=== PATIENT | male | born 1950 | race Caucasian/White ===

== ENCOUNTER 2019-05-07 10:09 | Emergency (ER) | payer OTHER, MEDICARE ==
[2019-05-07 10:43] LABS: ABSOLUTE LYMPHOCYTES (AUTO) 0.6 10^3/uL (0.5-4.7); ABSOLUTE MONOCYTES (AUTO) 0.4 10^3/uL (0.1-1.4); ABSOLUTE NEUT (AUTO) 10.1 10^3/uL (1.7-8.2); BASOPHILS % (AUTO) 0.3 % (0-2); HEMATOCRIT 47.2 % (37.9-51.0); HEMOGLOBIN 16.8 g/dL (13.5-17.0); LYMPHOCYTES % (AUTO) 5.6 % (13-45); MEAN CORPUSCULAR HEMOGLOBIN 30.3 pg (27.0-33.4); MEAN CORPUSCULAR HGB CONC 35.5 g/dL (32.0-36.0); MEAN CORPUSCULAR VOLUME 85 fl (80-97); MONOCYTES % (AUTO) 3.5 % (3-13); PLATELET COUNT 168 10^3/uL (150-450); RED BLOOD COUNT 5.54 10^6/uL (4.35-5.55); RED CELL DISTRIBUTION WIDTH 14.1 % (11.5-14.0); SEGMENTED NEUTROPHILS % (AUTO) 90.6 % (42-78); TOTAL CELLS COUNTED % (AUTO) 100 %; WHITE BLOOD COUNT 11.2 10^3/uL (4.0-10.5)
[2019-05-07 11:01] LABS: ALBUMIN 4.9 g/dL (3.5-5.0); ALKALINE PHOSPHATASE 84 U/L (38-126); ANION GAP 14 (5-19); ASPARTATE AMINO TRANSFERASE 23 U/L (17-59); BILIRUBIN,DIRECT 0.1 mg/dL (0.0-0.4); BILIRUBIN,TOTAL 1.1 mg/dL (0.2-1.3); BLOOD UREA NITROGEN 16 mg/dL (7-20); CALCIUM 10.4 mg/dL (8.4-10.2); CARBON DIOXIDE 24 mmol/L (22-30); CHLORIDE 105 mmol/L (98-107); GLUCOSE 146 mg/dL (75-110); POTASSIUM 3.9 mmol/L (3.6-5.0)
[2019-05-07] MEDS ORDERED: ONDANSETRON HCL INJ/PF 4 MG/2 ML SDV IV ONE (11:10)
[2019-05-07] MEDS ORDERED: MECLIZINE HCL 25 MG TABLET PO ONE (11:10)
[2019-05-07] MEDS ORDERED: LISINOPRIL 10 MG TABLET PO ONE (11:12)
[2019-05-07] MEDS ORDERED: VERAPAMIL HCL 180 MG TABLET.SA PO ONE (11:13)
--- NOTE | 2019-05-07 12:02 | ER Document Report ---
Entered by RENUKA STUART SCRIBE 05/07/19 1058 Acting as scribe for:YAZ CASTAÑEDA MD ED GI/ - General Chief Complaint: Nausea/Vomiting Stated Complaint: DIZZINESS,VOMITING Time Seen by Provider: 05/07/19 10:52 Mode of Arrival: Ambulatory Information source: Patient Notes: This 69 year old male patient presents to the ED today with complaints of intermittent dizziness that began around 4:00 PM yesterday. Patient states that he has been feeling dizzy for the past x10 years since he started taking Magnesium Oxide for migraine symptoms. Patient notes that the his dizziness seemed to go away about x5-6 years ago, but that the symptoms have returned and worsened in the past year. Patient reports nausea and vomiting x5-6 times since 10:00 PM last night. Sister states that the patient complains of a sore throat due to the vomiting. Patient states that he did not take any medications for his symptoms and that flashing lights exacerbate the dizziness. Patient denies any diarrhea and states that he had a normal BM last night. Patient notes that he recently moved to [place] on March 07 from [place], [place] and that he lives with his sister's family. - Related Data Allergies/Adverse Reactions: Penicillins Allergy (Verified 05/07/19 11:03) Past Medical History - General Information source: Patient, Relative - Social History Smoking Status: Unknown if Ever Smoked Cigarette use (# per day): No Chew tobacco use (# tins/day): No Smoking Education Provided: No Frequency of alcohol use: None Drug Abuse: None Lives with: Family Family History: Reviewed & Not Pertinent Patient has suicidal ideation: No Patient has homicidal ideation: No EENT Medical History: Reports: Throat - Radiofrequency Ablation for Laws's Esophagus x6 Past Surgical History: Reports: Hx Tonsillectomy Review of Systems - Review of Systems Constitutional: No symptoms reported EENT: See HPI, Throat pain Cardiovascular: See HPI, Dizziness Respiratory: No symptoms reported Gastrointestinal: See HPI, Nausea, Vomiting, Last bowel movement - Normal last night. denies: Diarrhea Genitourinary: No symptoms reported Male Genitourinary: No symptoms reported Musculoskeletal: No symptoms reported Skin: No symptoms reported Hematologic/Lymphatic: No symptoms reported Neurological/Psychological: No symptoms reported -: Yes All other systems reviewed and negative Physical Exam - Vital signs Vitals: Temp Pulse Resp BP Pulse Ox 97.6 F 63 32 H 149/90 H 92 05/07/19 10:09 05/07/19 10:09 05/07/19 10:05/07/19 10:05/07/19 10:09 Interpretation: Normal - General General appearance: Alert - HEENT Head: Normocephalic, Atraumatic Eyes: Other - Lateral gaze nystagmus in both eyes Pupils: PERRL Neck: No: Carotid bruit - Respiratory Respiratory status: No respiratory distress Chest status: Nontender Breath sounds: Normal Chest palpation: Normal - Cardiovascular Rhythm: Regular Heart sounds: Normal auscultation Murmur: Yes - Systolic - Abdominal Inspection: Normal Distension: No distension Bowel sounds: Normal Tenderness: Nontender Organomegaly: No organomegaly - Back Back: Normal, Nontender - Extremities General upper extremity: Normal inspection General lower extremity: Normal inspection. No: Edema - No peripheral edema - Neurological Neuro grossly intact: Yes - Psychological Associated symptoms: Normal affect, Normal mood - Skin Skin Temperature: Warm Skin Moisture: Dry Skin Color: Normal Course - Re-evaluation Re-evalutation: 05/07/19 14:02 Patient reports that at this time his symptoms are "right on the edge". He states the dizziness is slightly better than it was, but he feels that if he were to try to stand up and walk he would start throwing up and get. Dizzy. We will try some Reglan and see how that does. 05/07/19 16:03 Patient is feeling better at this time. He does not have medication at home to take for his chronic dizziness. His states that she does have medication that she has to take occasionally. Patient states he does have his first new appointment with a primary care provider at the [facility] tomorrow morning. We will give him a prescription for meclizine and he is to keep his follow-up appointment tomorrow. The patient's blood pressure has come down since he received his blood pressure medications earlier today. - Vital Signs Vital signs: Temp Pulse Resp BP Pulse Ox 98.7 F 63 19 144/92 H 97 05/07/19 18:21 05/07/19 10:09 05/07/19 18:21 05/07/19 18:21 05/07/19 18:21 - Laboratory Result Diagrams: 05/07/19 10:30 05/07/19 10:30 Laboratory results interpreted by me: 05/07/19 05/07/19 10:30 10:30 WBC 11.2 H RDW 14.1 H Lymph % (Auto) 5.6 L Absolute Neuts (auto) 10.1 H Seg Neutrophils % 90.6 H Glucose 146 H Calcium 10.4 H Discharge - Discharge Clinical Impression: Chronic vertigo Nausea and vomiting Qualifiers: Vomiting type: unspecified Vomiting Intractability: non-intractable Qualified Code(s): R11.2 - Nausea with vomiting, unspecified Condition: Stable Disposition: HOME, SELF-CARE Additional Instructions: Take the medication as prescribed for your dizziness. Drink small sips of cool clear liquids today. Follow-up with your new primary care provider appointment tomorrow as planned. RETURN TO THE EMERGENCY ROOM IF ANY NEW OR WORSENING SYMPTOMS. Prescriptions: Meclizine HCl [Antivert 25 mg Tablet] 25 mg PO TID PRN #30 tablet PRN Reason: Metoclopramide HCl [Reglan 10 mg Tablet] 10 mg PO Q4 PRN #12 tablet PRN Reason: For Nausea/Vomiting Scribe Attestation: 05/07/19 12:28 I personally performed the services described in the documentation, reviewed and edited the documentation which was dictated to the scribe in my presence, and it accurately records my words and actions. I personally performed the services described in the documentation, reviewed and edited the documentation which was dictated to the scribe in my presence, and it accurately records my words and actions.
[2019-05-07] MEDS ORDERED: NORMAL SALINE 1000 ML 1,000 ML IV ONE (12:28)
[2019-05-07] MEDS ORDERED: METOCLOPRAMIDE HCL INJ/PF 10 MG/2 ML SDV IV ONE (14:01)
[2019-05-07 18:27] VITALS: BP 144/92
== END 2019-05-07 18:27 | disposition home or self-care (01) ==
LOC: ER 10:09
DX: R11.2 Nausea with vomiting, unspecified (principal); R42 Dizziness and giddiness; Z88.0 Allergy status to penicillin
CPT/HCPCS: 99284; 96361; 96374; 96375; 36415; 85025; 80053; J3490; J2765; J2405; J7030